=== PATIENT | female | born 1990 | race Caucasian/White ===

== ENCOUNTER 2017-03-24 17:47 | Emergency (ER) | payer OTHER ==
--- NOTE | 2017-03-24 18:41 | RAD ---
Indication: Right ankle pain. 3 views of the right ankle demonstrates no fracture. Ankle mortise is intact. IMPRESSION: No fracture of the right ankle is noted.
--- NOTE | 2017-03-24 19:09 | ED ---
Lower Extremity - HPI Summary HPI Summary: Patient presents to the ED after falling from her horse. She thinks the horse kicked her ankle, but is not sure. She also states she could have inverted the ankle. Injury occurred about an hour before arrival. She is ambulating but with pain and limping. Pain is worse on the lateral aspect of the ankle. She denies knee pain or foot pain. Thorough physical exam was performed, focusing on ankle special tests. Pain on palpation over lateral aspect and superior aspect of ankle over ATFL and deltoid ligaments. No pain on palpation over medial side. Due to patient pain around injury, physical exam was limited. Unable to perform anterior drawer test or talar tilt test d/t pain. Ray test negative. Limited ROM. Dorsiflexion, great toe extension and plantar flexion intact however limited. No pain on palpation over medial or lateral lower extremity. No pain with knee flexion. Pulses intact bilaterally. No temperature change or pallor noted bilaterally. Ecchymosis and swelling noted on lateral aspect. No lesion or disruption of skin is seen. Able to bear weight. Cap refill < 2 sec. - History of Current Complaint Chief Complaint: EDExtremityLower Stated Complaint: RT ANKLE INJURY Time Seen by Provider: 03/24/17 18:08 Hx Obtained From: Patient Mechanism Of Injury: Direct Blow, Twisted Onset of Pain: Hours Onset/Duration: Hours Severity Initially: Moderate Severity Currently: Moderate Pain Intensity: 6 Pain Scale Used: 0-10 Numeric Timing: Constant Location: Is Discrete @ - right lateral ankle Character Of Pain: Aching Associated Signs And Symptoms: Positive: Negative. Negative: Swelling, Redness , Bruising Aggravating Factor(s): Standing, Ambulation, Movement, Weight Bearing Alleviating Factor(s): Rest, Elevation, Ice Able to Bear Weight: Yes - Risk Factors Gout Risk Factors: Negative DVT Risk Factors: Negative Septic Arthritis Risk Factor: Negative - Allergies/Home Medications Allergies/Adverse Reactions: Allergies Allergy/AdvReac Type Severity Reaction Status Date / Time No Known Allergies Allergy Verified 03/24/17 17:55 PMH/Surg Hx/FS Hx/Imm Hx Previously Healthy: Yes - Immunization History Hx Pertussis Vaccination: No Immunizations Up to Date: Unable to Obtain/Confirm Infectious Disease History: No Infectious Disease History: Denies: Traveled Outside the [place] in Last 30 Days - Social History Occupation: Employed Full-time Lives: With Family Alcohol Use: Occasionally Hx Substance Use: No Substance Use Type: Reports: None Hx Tobacco Use: No Smoking Status (MU): Never Smoked Tobacco Review of Systems Constitutional: Negative Negative: Fever, Chills, Fatigue Eyes: Negative ENT: Negative Cardiovascular: Negative Negative: Shortness Of Breath, Cough Positive: no symptoms reported, see HPI Positive: Arthralgia - right ankle pain Negative: Bruising Negative: Weakness, Paresthesia, Numbness Psychological: Normal All Other Systems Reviewed And Are Negative: Yes Physical Exam Triage Information Reviewed: Yes Vital Signs On Initial Exam: Initial Vitals Temp Pulse Resp BP Pulse Ox 98.1 F 100 16 147/69 100 03/24/17 17:55 03/24/17 17:55 03/24/17 17:55 03/24/17 17:55 03/24/17 17:55 Vital Signs Reviewed: Yes Appearance: Positive: Well-Appearing, Well-Nourished Skin: Positive: Warm, Skin Color Reflects Adequate Perfusion. Negative: Dry, Cold, Purpura Head/Face: Positive: Normal Head/Face Inspection Eyes: Positive: EOMI, FAVIAN, Conjunctiva Clear Respiratory/Lung Sounds: Positive: Clear to Auscultation, Breath Sounds Present Cardiovascular: Positive: Normal, RRR, Pulses are Symmetrical in both Upper and Lower Extremities. Negative: Leg Edema Left, Leg Edema Right Musculoskeletal: Positive: Pain @ - right ankle without decreased sensation Neurological: Positive: Sensory/Motor Intact, Alert, Oriented to Person Place, Time Psychiatric: Positive: Normal AVPU Assessment: Alert Diagnostics - Vital Signs Vital Signs Temp Pulse Resp BP Pulse Ox 03/24/17 18:23 98.8 F 83 16 142/89 100 03/24/17 17:55 98.1 F 100 16 147/69 100 - Laboratory Lab Statement: Any lab studies that have been ordered have been reviewed, and results considered in the medical decision making process. Lower Extremity Course/Dx - Course Course Of Treatment: Based on [facility] Rules, patient sent to imaging. Xray negative for fracture or other acute findings. No soft tissue swelling is noted. Medial and lateral distal lower extremity without pain and x-rays show no widening of the ankle joint regarding low suspicion for Maisonneuve fx. Ankle was milton wrapped to patient comfort to allow for immobilization for this period of time. Patient denies needing crutches. Discussed the possible need for orthopedic follow up if symptoms persist. Encouraged Ibuprofen 600mg three times daily with meals for pain. Return precautions given. Educated patient regarding ankle injuries and healing time and the possibility of further evaluation and imaging as orthopedist sees fit. Patient is OK for discharge. - Diagnoses Differential Diagnosis/HQI/PQRI: Positive: Contusion, Sprain, Strain Provider Diagnoses: Right ankle sprain Discharge - Discharge Plan Condition: Stable Disposition: HOME Patient Education Materials: Ankle Sprain (ED) Forms: *Work Release Additional Instructions: Discharge: Ibuprofen 600mg three times daily with meals for pain. Follow up with orthopedic physician in 5-7 days if symptoms persist. If numbness, tingling, decreased sensation, increased pain, temperature changes or pallor noted in toes, come back to ER immediately. Protect the area. For your comfort level, do not bear weight, pull or push until you can injury is somewhat healed. This may involve the need for immobilization or crutches for a period of time. Rest the involved area, but not too long. You may need to be off your injury for some time to allow for healing, however excessive immobilization of joints can lead to stiffness and delay healing time. Early mobilization is encouraged if it is pain-free. Ice. Not directly on the skin. Cover with a towel. Apply ice no more than 30 minutes at a time Compression: You may use and keep an milton wrap bandage over the injury to decrease swelling. Again, this should be limited and be taken off periodically to encourage early range of motion and mobilization. Elevate: Try to elevate the injured area above the heart whenever possible.
[2017-03-24 19:53] VITALS: BP 115/72
== END 2017-03-24 19:20 | disposition home or self-care (01) ==
LOC: ED 17:47
DX: S93.401A Sprain of unspecified ligament of right ankle, initial encounter (principal); V80.010A Animal-rider injured by fall from or being thrown from horse in noncollision accident, initial encounter; Y93.9 Activity, unspecified; Y92.9 Unspecified place or not applicable
CPT/HCPCS: 99282